=== PATIENT | female | born 1995 | race Caucasian/White ===

== ENCOUNTER 2019-08-09 21:28 | Emergency (ER) | payer BC ==
[~2019-08-09] VITALS: Ht 152.4 cm; Wt 77.3 kg
[2019-08-09 22:09] VITALS: Ht 152.4 cm; Wt 77.3 kg
[2019-08-10 01:34] LABS: BASOPHIL % 0.5 % (0-2); RED CELL DISTRIBUTION WIDTH 12.8 % (11.5-14.5)
[2019-08-10 01:35] LABS: PLATELET COUNT 443 x10^3mcL (130-400)
[2019-08-10 01:47] LABS: CARBON DIOXIDE 26.3 mmol/L (21-32); CHLORIDE SERUM 102 mmol/L (98-107); CREATININE SERUM 0.7 mg/dL (0.6-1.0); GFR1 > 60 mL/min; GLUCOSE SERUM 113 mg/dL (74-106); POTASSIUM SERUM 3.9 mmol/L (3.5-5.1); SODIUM SERUM 139 mmol/L (136-145)
[2019-08-10 02:20] VITALS: BP 105/59
== END 2019-08-10 02:50 | disposition home or self-care (01) ==
LOC: ED 21:28
PROVIDERS: Specialist
DX: N93.8 Other specified abnormal uterine and vaginal bleeding (principal); D64.9 Anemia, unspecified
CPT/HCPCS: 36415